=== PATIENT | female | born 2005 | race Caucasian/White ===

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

== ENCOUNTER 2025-10-11 20:55 | Emergency (ER) | payer OTHER ==
[~2025-10-11] VITALS: Ht 165.1 cm; Wt 49.9 kg
[~2025-10-11 20:55] MED LIST changes: +CEFD300 PO; +PANT40 PO
[2025-10-11 20:59] VITALS: BP 111/72
== END 2025-10-11 21:09 | disposition home or self-care (01) ==
LOC: ER 20:55
DX: Z76.0 Encounter for issue of repeat prescription (principal); Q89.2 Congenital malformations of other endocrine glands; E03.9 Hypothyroidism, unspecified; Z79.890 Hormone replacement therapy; Z88.2 Allergy status to sulfonamides; Z79.899 Other long term (current) drug therapy; Z59.89 Other problems related to housing and economic circumstances
CPT/HCPCS: 99281; A9270